=== PATIENT | male | born 1995 | race Two or more races ===

== ENCOUNTER 2020-06-03 12:22 | Emergency (ER) | payer BC, OTHER ==
[~2020-06-03] VITALS: Ht 180.3 cm; Wt 122.5 kg
[2020-06-03 12:42] VITALS: BP 132/70
[2020-06-03] MEDS ORDERED: FLUORESCEIN SOD OPTH TEST STRIP LEFTEYE ONE (14:30)
[2020-06-03] MEDS ORDERED: TETRACAINE HCL 0.5% OPTH(EYE) SOLN 4ML LEFTEYE ONE (14:30)
== END 2020-06-03 16:09 | disposition home or self-care (01) ==
LOC: ER 12:36
DX: H10.32 Unspecified acute conjunctivitis, left eye (principal)
CPT/HCPCS: 70486